=== PATIENT | male | born 1990 | race African-American/Black ===

== ENCOUNTER 2016-07-06 18:36 | Emergency (ER) | payer SELFPAY ==
[~2016-07-06] VITALS: Ht 172.7 cm; Wt 72.5 kg
[~2016-07-06 18:36] MED LIST: CIPRO500 MG PO; NAPROXEN500 MG PO
[2016-07-06 20:03] VITALS: BP 129/79
== END 2016-07-06 20:05 | disposition home or self-care (01) ==
LOC: EME 18:36
DX: B30.9 Viral conjunctivitis, unspecified (principal); F17.200 Nicotine dependence, unspecified, uncomplicated
CPT/HCPCS: 99281; 99283